=== PATIENT | female | born 1995 | race Caucasian/White ===

== ENCOUNTER 2017-10-28 11:57 | Emergency (ER) | payer OTHER, SELFPAY ==
[~2017-10-28 11:57] MED LIST: Iopamidol 370 76% 100 ML VIAL ONE
[2017-10-28 13:21] LABS: Bilirubin Negative (Negative); Blood, Urine Negative (Negative); Clarity Slightly Cloudy (Clear); Glucose, Urine (Dipstick) Negative (Negative); Leukocyte Negative (Negative); Nitrite Negative (Negative); Protein, Urine (Dipstick) Trace mg/dL (Neg-Trace); Urobilinogen 0.2 mg/dL (0.2-1.0)
[2017-10-28 13:24] LABS: Bacteria/HPF 2+ HPF (None Seen); RBC/HPF None Seen HPF (0-3); WBC/HPF 0-3 HPF (0-3)
[2017-10-28 13:40] LABS: #Lymphocytes 0.5 thou/uL (1.20-3.40); #Monocytes 0.2 thou/uL (0.11-0.59); #Neutrophils 17.1 thou/uL (1.40-6.50); %Basophils 0.2 % (0.0-1.0); %Eosinophils 0.1 % (0.0-10.0); %Lymphocytes 2.7 % (21.0-51.0); Hemoglobin 15.3 g/dL (12.0-16.0); Mean Corpuscular HGB CONC 32.5 g/dL (32.0-36.0); Mean Corpuscular Hemoglobin 27.3 pg (27.0-31.0); Mean Corpuscular Volume 83.9 fl (81.0-99.0); Mean Platelet Volume 6.8 fL (7.4-10.4); Platelet Count 302 thou/uL (130-400); Red Blood Cell (RBC) Count 5.62 mill/uL (4.20-5.40); White Blood Cell (WBC) Count 17.8 thou/uL (4.8-10.8)
[2017-10-28 13:52] LABS: ALT (SGPT) 42 U/L (8-55); AST (SGOT) 28 U/L (5-34); Albumin 4.2 g/dL (3.5-5.0); Alkaline Phosphatase 129 U/L (40-150); Anion Gap 16 mmol/L (10-20); BUN (Urea Nitrogen) 14 mg/dL (7.0-18.7); Bilirubin, Total 0.7 mg/dL (0.2-1.2); Calc. Creatinine Clearance 0 mL/min (70-130); Calcium 9.5 mg/dL (7.8-10.44); Carbon Dioxide 22 mmol/L (22-29); Chloride 107 mmol/L (98-107); Estimated GFR-MDRD Greater than 90; Globulin 3.2 g/dL (2.4-3.5); Glucose 96 mg/dL (70-105); Lipase 13 U/L (8-78); Potassium 3.8 mmol/L (3.5-5.1); Protein, Total 7.4 g/dL (6.0-8.3); Sodium 141 mmol/L (136-145)
--- NOTE | 2017-10-28 13:56 | RAD ---
CHEST 1 VIEW: HISTORY: Chest pain. FINDINGS: Cardiac silhouette and pulmonary vasculature are unremarkable. Mediastinum is midline. No lobar con solidation or evidence of pneumothorax. IMPRESSION: No active cardiopulmonary abnormalities are demonstrated. POS: [facility]
[2017-10-28] MEDS ORDERED: Ketorolac Tromethamine 30 MG/ML VIAL ONE (13:58)
[2017-10-28] MEDS ORDERED: Promethazine HCl 25 MG/ML VIAL ONE (13:58)
[2017-10-28] MEDS ORDERED: Morphine 10 MG/ML VIAL ONE ×2 (13:58→16:22)
--- NOTE | 2017-10-28 15:24 | CT ---
CT ABDOMEN AND PELVIS WITH IV AND ORAL CONTRAST: History: Abdominal pain. FINDINGS: Lung bases are clear. The liver, spleen, kidneys, adrenal glands, and pancreas are unremarkable. No e vidence of bowel obstruction. Appendix is not inflamed. Reactive appearing lymph nodes are scattered about the mesentery. Follicles arise from the ovaries. Urinary bladder is unremarkable. IMPRESSION: 1. No significant abnormalities are demonstrated. POS: [facility]
== END 2017-10-28 16:30 | disposition short-term general hospital (02) ==
LOC: MADERS 11:57
DX: R10.13 Epigastric pain (principal); R10.11 Right upper quadrant pain; J45.909 Unspecified asthma, uncomplicated
CPT/HCPCS: 36415; 71045; 74177; 80053; 81001; 82150; 83690; 85025; 87086; 96374; 96375; 96376; J1885; J2270; J2550

== ENCOUNTER 2018-06-23 12:34 | Emergency (ER) | payer SELFPAY | END 2018-06-23 13:16 | disposition home or self-care (01) | LOC: MADERS 12:34 | DX: R09.81 Nasal congestion (principal); R05 Cough | CPT/HCPCS: 99281 ==

== ENCOUNTER 2019-02-22 09:48 | Outpatient (CLI) | payer MEDICAID ==
--- NOTE | 2019-02-22 13:18 | ULT ---
PELVIC SONOGRAM TRANSABDOMINAL AND TRANASVAGINAL IMAGING WITH DUPLEX EVALUATION: Date: 02/22/19 HISTORY: Pelvic pain. Dyspareunia. FINDINGS: The urinary bladder is incompletely distended. No focal abnormality is evident. Uterus has a heteroge neous echotexture and measures up to 6.1 cm. Endometrium is 0.6 cm. Very small amount of fluid within the endometrium. Physiologic amount of fluid within the cul-de-sac. Right ovary measures up to 3.4 cm and left up to 2.8 cm. Each has a normal appearance with follicles and good color and spectral Doppler flow. IMPRESSION: Normal pelvic sonogram. POS: [facility]
== END 2019-02-22 09:49 | disposition home or self-care (01) ==
LOC: MADULT 09:48
PROVIDERS: ATTEND Family Medicine
DX: R10.2 Pelvic and perineal pain (principal)
CPT/HCPCS: 76856

== ENCOUNTER 2020-09-04 09:11 | Emergency (ER) | payer SELFPAY ==
[2020-09-04] MEDS ORDERED: Acetaminophen 325 MG TAB ONE (09:55)
[2020-09-04] MEDS ORDERED: HYDROcodone/Acetaminophen 5/325 mg Tablet ONE (09:55)
[2020-09-04 09:58] LABS: Pregnancy Test - Urine (BHCG) Negative (Negative); Pregu Control Background? CLEAR/WHITE (CLR/WHITE); Pregu Control Bar Appear? YES (CONTROL BAR)
[2020-09-04 10:00] LABS: Bilirubin Negative (Negative); Blood, Urine Large (Negative); Clarity Clear (Clear); Glucose, Urine (Dipstick) Negative (Negative); Ketone, Urine Negative (Negative); Leukocyte Negative (Negative); Nitrite Negative (Negative); Protein, Urine (Dipstick) Negative (Neg-Trace); Urobilinogen 0.2 mg/dL (Less than 2)
[2020-09-04 10:01] LABS: Bacteria/HPF Rare-Few HPF (None Seen); Squamous Epithelial 0-3 HPF (0-3); WBC/HPF 0-3 HPF (0-3)
--- NOTE | 2020-09-04 11:02 | CT ---
CT ABDOMEN AND PELVIS WITHOUT CONTRAST: Date: 09/04/2020 PROVIDED CLINICAL HISTORY: Abdominal pain. FINDINGS: Comparison with 10/28/2017. The visualized lung bases are free of significant opacity. There is no evidence for urinary tract calculi or hydronephrosis. The solid abdominal organs are subo ptimally evaluated in the absence of IV contrast material, but demonstrate an unremarkable unenhanced CT appearance. There is inflammatory fat stranding seen within the central low pelvis, about the dome of the urinary bladder and loops of bowel in this region. This is remote from a normal appearing appendix. There is no evidence for bowel obstruction. No additional fat stranding or free air apparent. No sign ificant free intraperitoneal fluid. The osseous structures demonstrate no concerning lytic or blastic lesions. IMPRESSION: Inflammatory fat stranding changes within the central low pelvis, the etiology of which is not certai n. Enteritis and cystitis could be considered. POS: [facility]
== END 2020-09-04 10:50 | disposition home or self-care (01) ==
LOC: MADERS 09:11
DX: R10.11 Right upper quadrant pain (principal); N93.9 Abnormal uterine and vaginal bleeding, unspecified; J45.909 Unspecified asthma, uncomplicated; Z79.899 Other long term (current) drug therapy
CPT/HCPCS: 74176; 81003; 81015; 81025

== ENCOUNTER 2020-12-03 12:18 | Emergency (ER) | payer MEDICAID, SELFPAY ==
[2020-12-03] MEDS ORDERED: Ondansetron ODT 4 MG TAB ONE (12:35)
== END 2020-12-03 12:44 | disposition home or self-care (01) ==
LOC: MADERS 12:18
DX: R11.0 Nausea (principal); T40.2X5A Adverse effect of other opioids, initial encounter; J45.909 Unspecified asthma, uncomplicated
CPT/HCPCS: 99283; Q0162

== ENCOUNTER 2021-02-12 20:45 | Emergency (ER) | payer MEDICAID ==
[2021-02-12] MEDS ORDERED: HYDROcodone/Acetaminophen 5/325 mg Tablet ONE (21:39)
[2021-02-12] MEDS ORDERED: Acetaminophen 325 MG TAB ONE (21:39)
[2021-02-12 21:49] LABS: Bilirubin Negative (Negative); Blood, Urine Moderate (Negative); Clarity Clear (Clear); Glucose, Urine (Dipstick) Negative (Negative); Ketone, Urine Negative (Negative); Leukocyte Negative (Negative); Nitrite Negative (Negative); Protein, Urine (Dipstick) Negative (Neg-Trace); Specific Gravity, Urine 1.025 (1.005-1.030); pH, Urine 7.5 (5.0-9.0)
[2021-02-12 21:50] LABS: Pregnancy Test - Urine (BHCG) Negative (Negative); Pregu Control Background? CLEAR/WHITE (CLR/WHITE); Pregu Control Bar Appear? YES (CONTROL BAR); RBC/HPF Greater than 50 HPF (0-3); Specific Gravity 1.025 (1.002-1.036); Squamous Epithelial 0-3 HPF (0-3); WBC/HPF 0-3 HPF (0-3)
== END 2021-02-12 22:45 | disposition home or self-care (01) ==
LOC: MADERS 20:45
DX: N94.6 Dysmenorrhea, unspecified (principal); Z79.899 Other long term (current) drug therapy; J45.909 Unspecified asthma, uncomplicated
CPT/HCPCS: 81003; 81015; 81025; 99284

== ENCOUNTER 2021-07-27 18:36 | Emergency (ER) | payer MEDICAID ==
[2021-07-27 20:01] LABS: #Basophils 0.1 thou/uL (0.0-0.2); #Lymphocytes 1.5 thou/uL (1.20-3.40); #Monocytes 0.6 thou/uL (0.11-0.59); #Neutrophils 13.8 thou/uL (1.40-6.50); %Basophils 0.5 % (0.0-1.0); %Eosinophils 0.3 % (0.0-10.0); %Lymphocytes 9.4 % (21.0-51.0); %Monocytes 3.8 % (0.0-10.0); Hemoglobin 13.1 g/dL (12.0-16.0); Mean Corpuscular HGB CONC 31.9 g/dL (32.0-36.0); Mean Corpuscular Hemoglobin 26.5 pg (27.0-31.0); Mean Corpuscular Volume 83.2 fL (78.0-98.0); Mean Platelet Volume 6.7 fL (7.4-10.4); Platelet Count 295 thou/uL (130-400); RBC Distribution Width 12.9 % (11.5-14.5); Red Blood Cell (RBC) Count 4.94 mill/uL (4.20-5.40); White Blood Cell (WBC) Count 16.1 thou/uL (4.8-10.8)
[2021-07-27 20:25] LABS: ALT (SGPT) 24 U/L (8-55); AST (SGOT) 20 U/L (5-34); Albumin 3.9 g/dL (3.5-5.0); Alkaline Phosphatase 115 U/L (40-110); Anion Gap 17 mmol/L (10-20); BUN (Urea Nitrogen) 11 mg/dL (7.0-18.7); Bilirubin, Total 0.5 mg/dL (0.2-1.2); Calc. Creatinine Clearance 0 mL/min (70-130); Calcium 8.9 mg/dL (7.8-10.44); Carbon Dioxide 19 mmol/L (22-29); Chloride 107 mmol/L (98-107); Globulin 3.4 g/dL (2.4-3.5); Glucose 108 mg/dL (70-105); Potassium 3.5 mmol/L (3.5-5.1); Protein, Total 7.3 g/dL (6.0-8.3); Sodium 139 mmol/L (136-145)
== END 2021-07-27 21:05 | disposition home or self-care (01) ==
LOC: MADERS 18:36
DX: N94.6 Dysmenorrhea, unspecified (principal); J45.909 Unspecified asthma, uncomplicated; I10 Essential (primary) hypertension; Z79.899 Other long term (current) drug therapy
CPT/HCPCS: 80053; 84702; 85025; 86900; 86901; 99284

== ENCOUNTER 2022-01-22 21:43 | Emergency (ER) | payer MEDICAID, SELFPAY ==
[2022-01-22] MEDS ORDERED: Ondansetron PF 4 MG/2 ML Vial ONE (22:55)
[2022-01-22] MEDS ORDERED: Sodium Chloride 0.9% 1,000 ML ONE (22:55)
[2022-01-22 22:58] LABS: #Basophils 0.1 thou/uL (0.0-0.2); #Eosinphils 0.1 thou/uL (0.0-0.7); #Lymphocytes 2.6 thou/uL (1.20-3.40); #Monocytes 0.7 thou/uL (0.11-0.59); #Neutrophils 12.2 thou/uL (1.40-6.50); %Basophils 0.9 % (0.0-1.0); %Eosinophils 0.8 % (0.0-10.0); %Lymphocytes 16.3 % (21.0-51.0); %Monocytes 4.4 % (0.0-10.0); %Neutrophils 77.7 % (42.0-75.0); Hemoglobin 13.1 g/dL (12.0-16.0); Mean Corpuscular HGB CONC 32.4 g/dL (32.0-36.0); Mean Corpuscular Hemoglobin 26.3 pg (27.0-31.0); Mean Corpuscular Volume 81.3 fL (78.0-98.0); Mean Platelet Volume 8.5 fL (7.4-10.4); Platelet Count 288 thou/uL (130-400); RBC Distribution Width 13.4 % (11.5-14.5); Red Blood Cell (RBC) Count 4.96 mill/uL (4.20-5.40); White Blood Cell (WBC) Count 15.7 thou/uL (4.8-10.8)
[2022-01-22 23:10] LABS: BHCG - Serum Negative (NEGATIVE); Pregs Control Background? CLEAR/WHITE (CLR/WHITE); Pregs Control Bar Appear? YES (CONTROL BAR)
[2022-01-22 23:20] LABS: ALT (SGPT) 34 U/L (8-55); AST (SGOT) 38 U/L (5-34); Albumin 3.9 g/dL (3.5-5.0); Alkaline Phosphatase 130 U/L (40-110); Anion Gap 19 mmol/L (10-20); BUN (Urea Nitrogen) 11 mg/dL (7.0-18.7); Bilirubin, Total 0.4 mg/dL (0.2-1.2); CK (CPK) 56 U/L (29-168); Calc. Creatinine Clearance 0 mL/min (70-130); Calcium 8.8 mg/dL (7.8-10.44); Carbon Dioxide 18 mmol/L (22-29); Chloride 108 mmol/L (98-107); Estimated GFR 119; Globulin 3.2 g/dL (2.4-3.5); Glucose 94 mg/dL (70-105); Potassium 4.6 mmol/L (3.5-5.1); Protein, Total 7.1 g/dL (6.0-8.3); Sodium 140 mmol/L (136-145)
== END 2022-01-23 00:07 | disposition home or self-care (01) ==
LOC: MADERS 21:43
DX: R55 Syncope and collapse (principal); E86.0 Dehydration; E28.2 Polycystic ovarian syndrome
CPT/HCPCS: 80053; 82550; 84703; 85025; 96361; 96374; J2405; J7050

== ENCOUNTER 2022-03-23 08:28 | Emergency (ER) | payer SELFPAY ==
[2022-03-23 09:12] LABS: Bilirubin Negative (Negative); Blood, Urine Trace (Negative); Clarity Clear (Clear); Glucose, Urine (Dipstick) Negative (Negative); Ketone, Urine Negative (Negative); Leukocyte Negative (Negative); Nitrite Negative (Negative); Protein, Urine (Dipstick) Negative (Neg-Trace); Urobilinogen 0.2 mg/dL (Less than 2); pH, Urine 5.5 (5.0-9.0)
[2022-03-23 09:21] LABS: Pregnancy Test - Urine (BHCG) Negative (Negative); Pregu Control Background? CLEAR/WHITE (CLR/WHITE); Pregu Control Bar Appear? YES (CONTROL BAR); Specific Gravity 1.028 (1.002-1.036)
[2022-03-23 09:23] LABS: RBC/HPF 0-3 HPF (0-3); Specific Gravity, Urine 1.028 (1.002-1.036); WBC/HPF 0-3 HPF (0-3)
[2022-03-23 09:24] LABS: Bacteria/HPF Rare-Few HPF (None Seen)
[2022-03-23] MEDS ORDERED: Sodium Chloride 0.9% 1,000 ML ONE (09:27)
[2022-03-23] MEDS ORDERED: Ondansetron PF 4 MG/2 ML Vial ONE (09:27)
[2022-03-23] MEDS ORDERED: Morphine 4 MG/ML VIAL ONE (09:27)
[2022-03-23 10:00] LABS: #Basophils 0.1 thou/uL (0.0-0.2); #Eosinphils 0.2 thou/uL (0.0-0.7); #Monocytes 0.3 thou/uL (0.11-0.59); #Neutrophils 6.6 thou/uL (1.40-6.50); %Basophils 0.9 % (0.0-1.0); %Eosinophils 1.8 % (0.0-10.0); %Lymphocytes 21.8 % (21.0-51.0); %Monocytes 3.7 % (0.0-10.0); %Neutrophils 71.8 % (42.0-75.0); Hemoglobin 12.9 g/dL (12.0-16.0); Mean Corpuscular HGB CONC 31.6 g/dL (32.0-36.0); Mean Corpuscular Hemoglobin 26.6 pg (27.0-31.0); Mean Platelet Volume 8.4 fL (7.4-10.4); Platelet Count 285 thou/uL (130-400); RBC Distribution Width 12.7 % (11.5-14.5); Red Blood Cell (RBC) Count 4.87 mill/uL (4.20-5.40); White Blood Cell (WBC) Count 9.2 thou/uL (4.8-10.8)
[2022-03-23 10:23] LABS: ALT (SGPT) 15 U/L (8-55); AST (SGOT) 21 U/L (5-34); Albumin 3.8 g/dL (3.5-5.0); Alkaline Phosphatase 121 U/L (40-110); Anion Gap 13 mmol/L (10-20); BUN (Urea Nitrogen) 15 mg/dL (7.0-18.7); Bilirubin, Total 0.3 mg/dL (0.2-1.2); Calc. Creatinine Clearance 0 mL/min (70-130); Calcium 9.1 mg/dL (7.8-10.44); Carbon Dioxide 25 mmol/L (22-29); Chloride 105 mmol/L (98-107); Estimated GFR 105; Globulin 3.2 g/dL (2.4-3.5); Glucose 80 mg/dL (70-105); Lipase 8 U/L (8-78); Potassium 4.3 mmol/L (3.5-5.1); Sodium 139 mmol/L (136-145)
== END 2022-03-23 12:32 | disposition home or self-care (01) ==
LOC: MADERS 08:28
DX: S39.012A Strain of muscle, fascia and tendon of lower back, initial encounter (principal); S33.5XXA Sprain of ligaments of lumbar spine, initial encounter; R10.9 Unspecified abdominal pain; E28.2 Polycystic ovarian syndrome; X50.0XXA Overexertion from strenuous movement or load, initial encounter; Y93.F2 Activity, caregiving, lifting
CPT/HCPCS: 74176; 80053; 81003; 81015; 81025; 83690; 85025; 96361; 96374; 96375; J2270; J2405; J7050

== ENCOUNTER 2023-01-24 08:27 | Emergency (ER) | payer SELFPAY ==
[2023-01-24 09:21] LABS: Bilirubin Negative (Negative); Blood, Urine Negative (Negative); CAUTI Indications for Culture Dysuria,urgency,freq; Clarity Clear (Clear); Glucose, Urine (Dipstick) 100 mg/dL (Negative); Ketone, Urine Negative (Negative); Leukocyte Negative (Negative); Nitrite Positive (Negative); Protein, Urine (Dipstick) Negative (Neg-Trace); RBC/HPF 0-3 HPF (0-3); Specific Gravity, Urine 1.023 (1.002-1.036); WBC/HPF 0-3 HPF (0-3); pH, Urine 5.5 (5.0-9.0)
[2023-01-24 09:22] LABS: Bacteria/HPF Rare-Few HPF (None Seen); Urine Culture Reflex No No
[2023-01-24 09:23] LABS: Pregnancy Test - Urine (BHCG) Negative (Negative); Pregu Control Background? CLEAR/WHITE (CLR/WHITE); Pregu Control Bar Appear? YES (CONTROL BAR); Specific Gravity 1.023 (1.002-1.036)
[2023-01-24] MEDS ORDERED: Ibuprofen 200 MG TAB ONE ×2 (09:59→10:02)
== END 2023-01-24 10:50 | disposition home or self-care (01) ==
LOC: MADERS 08:27
DX: N39.0 Urinary tract infection, site not specified (principal)
CPT/HCPCS: 36416; 81001; 81025; 99283

== ENCOUNTER 2024-04-02 16:53 | Emergency (ER) | payer OTHER, SELFPAY | END 2024-04-02 18:58 | disposition home or self-care (01) | LOC: MADERS 16:53 | DX: M25.532 Pain in left wrist (principal); M67.432 Ganglion, left wrist | CPT/HCPCS: 99283 ==